=== PATIENT | female | born 1955 | race Caucasian/White ===

== ENCOUNTER 2022-12-18 17:02 | Emergency (ER) | payer OTHER ==
[~2022-12-18] VITALS: Ht 152.4 cm; Wt 56.7 kg
[2022-12-18 17:03] VITALS: BP 138/75; PULSE 85; RESP 20; TEMP 98; O2SAT 99
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
[2022-12-18] MEDS ORDERED: IBUPROFEN 600 MG TAB PO ONE (17:30)
[2022-12-18] MEDS ORDERED: LIDOCAINE 5% 1 EA PATCH TP ONE (17:50)
--- NOTE | 2022-12-18 17:50 | NUR ---
Pt has been seen by provider. All labs done. Pt has been made aware of plan of care. Pt placed on monitor. Will continue to monitor pt.
--- NOTE | 2022-12-18 19:22 | NUR ---
Pt report given to WENDY Adams. Transfer of care at this time.
[2022-12-18 19:29] LABS: ALBUMIN 3.9 g/dL (3.4-5.0); ANION GAP 11.1 (8-16); ASPARTATE AMINOTRANSFERASE 27 U/L (15-37); CARBON DIOXIDE 29.7 mmol/L (21-32); CHLORIDE 105 mmol/L (98-107); GFR ARICAN-AMERICAN 71 mL/min (>90); GLUCOSE 97 mg/dL (74-106); POTASSIUM 3.8 mmol/L (3.5-5.1); SODIUM SERUM 142 mmol/L (136-145); TOTAL BILIRUBIN 0.3 mg/dL (0.0-1.0); UREA NITROGEN, BLOOD 18 mg/dL (7-18)
[2022-12-18] MEDS ORDERED: IBUP-1842 PO (19:35)
[2022-12-18] MEDS ORDERED: DICL100G5 TP (19:35)
[2022-12-18] MEDS ORDERED: LID5T TP (19:35)
[2022-12-18 20:05] VITALS: BP 121/59; PULSE 71; RESP 18; TEMP 98.2; O2SAT 97
--- NOTE | 2022-12-18 20:05 | NUR ---
Patient discharged with v/s stable. Written and verbal after care instructions given and explained. Patient alert, oriented and verbalized understanding of instructions. Ambulatory with steady gait. All questions addressed prior to discharge. ID band removed. Patient advised to follow up with PMD. Rx of Motrin and Diclofenac Sodium, and Lidoderm patch given. Patient educated on indication of medication including possible reaction and side effects. Opportunity to ask questions provided and answered. Pt instructed to return back to the ER, if her condition worsens.
== END 2022-12-18 20:05 | disposition home or self-care (01) ==
LOC: MED 17:02
DX: S20.214A Contusion of middle front wall of thorax, initial encounter (principal); M25.562 Pain in left knee; Z79.899 Other long term (current) drug therapy; V49.88XA Car occupant (driver) (passenger) injured in other specified transport accidents, initial encounter; Y93.89 Activity, other specified; Y92.89 Other specified places as the place of occurrence of the external cause; Y99.8 Other external cause status
CPT/HCPCS: 36415; 71045; 71120; 80053; 84484; 93005; 99285